=== PATIENT | male | born 1985 | race Caucasian/White ===

== ENCOUNTER 2024-12-24 16:52 | Emergency (ER) | payer OTHER, SELFPAY ==
[2024-12-24 16:59] VITALS: BP 140/67; PULSE 114; RESP 20; TEMP 36.8; O2SAT 98
--- NOTE | 2024-12-24 17:16 | ED.LOWEXIN ---
HPI - Extremity Injury (Lower) General Chief Complaint: Extremity Injury, Lower Stated Complaint: twisted ankles Time Seen by Provider: 12/24/24 17:00 Source: patient and RN notes reviewed Mode of arrival: ambulatory Limitations: no limitations History of Present Illness HPI Narrative: 39-year-old male presents [facility] with family in a wheelchair complaining of bilateral ankle and feet swelling and pain. Patient said start is my around 5:00 a.m.. Patient says he was uses work or when he said he will twisting both of his ankles this morning. Patient is unsure if he fell. Patient does not believe he hit his head. Patient has a history of severe alcohol abuse, denies drinking alcohol today but stated he was drinking yesterday. From his alcohol abuse patient says he has severe memory loss. Patient reports redness, swelling, pain that is worse on the left than the right of his feet. Patient denies any significant past medical history but does not go to a doctor. Patient is unable to bear weight to see to the pain. Patient has any fevers, body aches, chills, nausea vomiting, diarrhea, chest pain, shortness of breath, Related Data Home Medications ?Medication ?Instructions ?Recorded ?Confirmed ?Last Taken ?Type No Home Medications 12/24/24 Unknown History Allergies Allergy/AdvReac Type Severity Reaction Status Date / Time No Known Allergies Allergy Unverified 12/24/24 17:06 Review of Systems Review of Systems: CONSTITUTIONAL: Denies fever, chills, or sweats. EYES: Denies visual changes, redness, or discharge. ENT: Denies rhinorrhea, congestion, sore throat, or otalgia. CARDIOVASCULAR: Denies chest pain, palpitations, or edema. RESPIRATORY: Denies cough or dyspnea. GASTROINTESTINAL: Denies abdominal pain, nausea, vomiting, or diarrhea. GENITOURINARY: Denies dysuria or hematuria. SKIN: Denies rash or itching. Positive for redness and swelling. MUSCULOSKELETAL: Denies back pain, joint pain, or myalgia. Positive Bilateral ankle pain. NEUROLOGIC: Denies headache, numbness, or weakness. PSYCHIATRIC: Denies anxiety or depression. All other systems reviewed are negative, except as documented in HPI. PMFSH Comments At the time of my signature, I reviewed and agree with the nursing past medical, surgical, social, and family history. There is no relevant family history pertinent to the patient complaint. Exam Narrative: GENERAL: This is a well-nourished, well-developed adult, in no apparent distress. They are non ill-appearing, nontoxic appearing. Patient is tearful. HEAD: normocephalic, atraumatic. EYES: Sclera clear/white. Conjunctiva normal. Vision is grossly intact. Extraocular movements intact EARS: External ears normal, Hearing grossly intact. NOSE: External nose normal THROAT: Mucous membranes moist, NECK: Neck supple, CARDIOVASCULAR: Regular rate and rhythm RESPIRATORY: Normal respiratory SKIN: Left foot/ankle erythematous starting move mid left lower leg extending down to his toes. It is hot to palpate very tender throughout. 2+ pitting edema. The pedal pulse 2 +and palpable. Patient able the wound was toes. There is pain to full range of motion of ankle. Neurovascular status intact.: Right foot/ankle: Erythematous around the right ankle. Nonpitting. It is hot and tender to palpate. No erythema or swelling the mid foot or toes. Normal range of motion of right ankle. Right pedal pulse 2 +palpable. Neurovascular status intact. NEURO: awake, alert, and oriented to person, place and time. There were no obvious focal neurologic abnormalities. Cranial nerve 2-12 grossly intact. EXTREMITIES: No joint tenderness, effusion, or edema noted. BACK: Nontender without deformity. No CVA tenderness. Course Course Emergency Course: Portions of this record may have been created with voice recognition software Level of Care: Express Care Visit Vital Signs Vital signs: Vital Signs Temperature 98.2 F 12/24/24 16:59 Pulse Rate 114 H 12/24/24 16:59 Respiratory Rate 12/24/24 16:59 Blood Pressure 140/67 12/24/24 16:59 Pulse Oximetry 98 12/24/24 16:59 Oxygen Delivery Room Air 12/24/24 16:59 Temperature 98.2 F 12/24/24 16:59 Pulse Rate 114 H 12/24/24 16:59 Respiratory Rate 12/24/24 16:59 Blood Pressure 140/67 12/24/24 16:59 Pulse Oximetry 98 12/24/24 16:59 Oxygen Delivery Room Air 12/24/24 16:59 Reviewed Transfer Transfered to: [facility] Transportation: Other (Private vehicle) Transfer rationale: Possible rapidly progressing cellulitis, patient requires higher level care, further evaluation management. Accepting physician: Dr. Martinez MDM - Extremity Injury (Lower) MDM Narrative Medical decision making narrative: There is smells of ETOH in the room, patient does deny drinking alcohol today. Concern for rapidly progressive cellulitis. Left leg worse than right. Very mild on the right foot versus left lower leg/foot. Patient and family adamantly denies his feet being red or swollen yesterday. Unclear if patient actually rolled his ankles,, or what happened this morning, no clear wound or injury to the feet. Likely from patient's alcohol abuse. Given patient's symptoms, it is recommend the patient seek a higher level care and proceed immediately to the emergency department. Patient is agreeable to go to [facility] ER. Called over to [facility] ER and spoke with Flora Florian who is aware this patient and Dr. Martinez accepted the patient for transfer. Patient's family will be taking the patient to the hospital via private vehicle. Patient heal dynamically stable for transfer. Patient advised to remain NPO and proceed immediately to the ER. Differential Diagnosis Differential diagnosis: Likely other (Cellulitis, ankle sprain, gout, fracture, osteomyelitis, stasis dermatitis, alcohol intoxication) Critical Care Time Critical Care Time Critical Care Time: No Discharge Plan Discharge Clinical Impression: Acute bilateral ankle pain, Alcohol abuse Cellulitis Qualifiers: Site of cellulitis: extremity Site of cellulitis of extremity: lower extremity Laterality: unspecified laterality Qualified Code(s): L03.119 - Cellulitis of unspecified part of limb Patient Disposition: Acute Care Hospital Condition: Stable Patient Language: [place]an Prescriptions: No Action No Home Medications Follow-up/Referrals: PHYSICIAN,PILOT INSTRUCTOR [Primary Care Provider, Internal Medicine] Time of Disposition: 17:23
== END 2024-12-24 17:20 | disposition short-term general hospital (02) ==
LOC: EXPBETH 16:56
DX: M25.572 Pain in left ankle and joints of left foot (principal); M25.571 Pain in right ankle and joints of right foot; F10.10 Alcohol abuse, uncomplicated; L03.116 Cellulitis of left lower limb; L03.115 Cellulitis of right lower limb; I10 Essential (primary) hypertension
CPT/HCPCS: 99202; G0463